=== PATIENT | female | born 1940 | race Asian ===

== ENCOUNTER 2017-10-08 13:17 | Outpatient (CLI) | payer MEDICARE, BC ==
--- NOTE | 2017-10-08 15:28 | ULT ---
ULTRASOUND CAROTID DOPPLER STANDARD: HISTORY: Chest pain. TIA. COMPARISON: None. FINDINGS: Real-time, denny scale, color Doppler, an spectral analysis of the extracranial carotid arteries perfo rmed. No elevated peak systolic velocities. Antegrade flow of both vertebral arteries. Right ICA/CCA rati o is 0.82 and left ICA/CCA ratio is 0.84. IMPRESSION: No hemodynamically significant stenosis. POS: JONI
== END 2017-10-08 13:18 | disposition home or self-care (01) ==
LOC: ULT 13:17
PROVIDERS: ATTEND Internal Medicine
DX: R09.89 Other specified symptoms and signs involving the circulatory and respiratory systems (principal); R01.1 Cardiac murmur, unspecified; I08.3 Combined rheumatic disorders of mitral, aortic and tricuspid valves
CPT/HCPCS: 93306; 93880

== ENCOUNTER 2017-11-22 14:42 | Outpatient (CLI) | payer MEDICARE, BC | END 2017-11-22 14:43 | disposition home or self-care (01) | LOC: BICMAMMO 14:42 | PROVIDERS: ATTEND Internal Medicine | DX: Z12.31 Encounter for screening mammogram for malignant neoplasm of breast (principal) | CPT/HCPCS: 77063; 77067 ==

== ENCOUNTER 2018-11-23 11:21 | Outpatient (CLI) | payer MEDICARE, BC ==
--- NOTE | 2018-11-23 11:54 | MMO ---
Bilateral MAMMO Bilat Screen [facility]. CLINICAL HISTORY: Patient is 77 years old and is seen for screening. VIEWS: The views performed were: bilateral craniocaudal with tomosynthesis and bilateral mediolateral oblique with tomosynthesis. FILMS COMPARED: The present examination has been compared to a prior imaging study performed at [facility] on 11/22/2017. MAMMOGRAM FINDINGS: The breasts are heterogeneously dense, which could obscure a lesion on mammography. There is a stable biopsy clip seen in the right breast. There are no suspicious masses, suspicious calcifications, or new areas of architectural distortion. IMPRESSION: THERE IS NO MAMMOGRAPHIC EVIDENCE OF MALIGNANCY. A ROUTINE FOLLOW-UP MAMMOGRAM IN 1 YEAR IS RECOMMENDED. THE RESULTS OF THIS EXAM WERE SENT TO THE PATIENT. ACR BI-RADS Category 2 - Benign finding MAMMOGRAPHY NOTE: 1. A negative mammogram report should not delay a biopsy if a dominant of clinically suspicious mass is present. 2. Approximately 10% to 15% of breast cancers are not detected by mammography. 3. Adenosis and dense breasts may obscure an underlying neoplasm. Reported by: MEDINA GIVENS MD Electonically Signed: [id number]
== END 2018-11-23 11:22 | disposition home or self-care (01) ==
LOC: BICMAMMO 11:21
PROVIDERS: ATTEND Internal Medicine
DX: Z12.31 Encounter for screening mammogram for malignant neoplasm of breast (principal)
CPT/HCPCS: 77063; 77067

== ENCOUNTER 2019-04-25 08:33 | Outpatient (CLI) | payer MEDICARE, BC ==
[2019-04-25] MEDS ORDERED: Regadenoson 0.4 MG/5 ML SYRINGE ONE (10:28)
--- NOTE | 2019-04-25 12:05 | NM ---
EXAM: CARDIAC SPECT HISTORY: Chest pain TECHNIQUE: A myocardial perfusion scan was performed using the single isotope 1 day protocol with chris hnetium 99m sestamibi. [10 mCi] was injected intravenously for the rest exam followed by 30 mCi for the stress study. Pharmacologic stress with Lexiscan was monitored and interpreted by Dr. Lopez FINDINGS: Homogeneous tracer distribution is seen in the myocardial segments on stress and rest image s without fixed or reversible defects. Gated SPECT LVEF: 83% Wall motion exam: Normal IMPRESSION: Normal myocardial perfusion scan
== END 2019-04-25 08:34 | disposition home or self-care (01) ==
LOC: NM 08:33
PROVIDERS: ATTEND Internal Medicine
DX: R07.9 Chest pain, unspecified (principal)
CPT/HCPCS: 78452; 93017; A9500; J2785

== ENCOUNTER 2019-11-27 12:50 | Outpatient (CLI) | payer MEDICARE, BC ==
--- NOTE | 2019-11-27 15:12 | MMO ---
Bilateral MAMMO Bilat Screen [facility]. CLINICAL HISTORY: Patient is 78 years old and is seen for screening. The patient has no family history of breast cancer. The patient has no personal history of cancer. The patient has a history of right Ultrasound Guided Core Biopsy in 2010 - benign. VIEWS: The views performed were: bilateral craniocaudal with tomosynthesis and bilateral mediolateral oblique with tomosynthesis. FILMS COMPARED: The present examination has been compared to prior imaging studies performed at [facility] on 11/22/2017 and 11/23/2018, and at [facility] on 10/18/2015 and 11/19/2016. This study has been interpreted with the assistance of computer-aided detection. MAMMOGRAM FINDINGS: There are scattered fibroglandular densities. Finding 1: There are stable benign appearing calcifications seen in both breasts. Finding 2: There is a stable biopsy clip seen in the right breast. There are no suspicious masses, suspicious calcifications, or new areas of architectural distortion. IMPRESSION: THERE IS NO MAMMOGRAPHIC EVIDENCE OF MALIGNANCY. A ROUTINE FOLLOW-UP MAMMOGRAM IN 1 YEAR IS RECOMMENDED. THE RESULTS OF THIS EXAM WERE SENT TO THE PATIENT. ACR BI-RADS Category 2 - Benign finding MAMMOGRAPHY NOTE: 1. A negative mammogram report should not delay a biopsy if a dominant of clinically suspicious mass is present. 2. Approximately 10% to 15% of breast cancers are not detected by mammography. 3. Adenosis and dense breasts may obscure an underlying neoplasm. Reported by: SHRUTHI DIAZ MD Electonically Signed: [id number]
== END 2019-11-27 12:51 | disposition home or self-care (01) ==
LOC: BICMAMMO 12:50
PROVIDERS: ATTEND Internal Medicine
DX: Z12.31 Encounter for screening mammogram for malignant neoplasm of breast (principal); Z91.89 Other specified personal risk factors, not elsewhere classified
CPT/HCPCS: 77063; 77067